=== PATIENT | female | born 2000 | race Caucasian/White ===

== ENCOUNTER 2022-03-31 15:47 | Emergency (ER) | payer OTHER ==
[~2022-03-31] VITALS: Ht 167.6 cm; Wt 97.5 kg
[2022-03-31] MEDS ORDERED: ACETAMINOPHEN ES 500 MG TABLET PO ONE (16:00)
[2022-03-31] MEDS ORDERED: IV NORMAL SALINE 1000 ML BAG IV ONE (16:00)
--- NOTE | 2022-03-31 16:03 | NUR ---
Dr Obregon at the bedside for MSE.
[2022-03-31 16:07] LABS: *BILIRUBIN,URIN NEGATIVE (NEGATIVE); *BLOOD, URINE NEGATIVE (NEGATIVE); *CLARITY,URINE CLEAR (CLEAR); *COLOR,URINE YELLOW (YELLOW); *KETONES,URINE NEGATIVE (NEGATIVE); *URINE HCG, QUAL NEG (NEGATIVE); *UROBILINOGEN,URINE 0.2 E.U./dl (NORMAL); LEUKOCYTE ESTERASE ,URINE NEGATIVE (NEGATIVE); NITRITE, URINE NEGATIVE (NEGATIVE); UGLUCOSE NEGATIVE (NEGATIVE)
[2022-03-31] MEDS ORDERED: LIDOCAINE VISCUS 2% 15 ML UDC MM ONE (16:15)
[2022-03-31] MEDS ORDERED: MAG HYDROX/AL HYDROX/SIMETH 30 ML LIQUID UDC PO ONE (16:15)
[2022-03-31] MEDS ORDERED: FAMOTIDINE. 20 MG/2 ML VIAL IV ONE ×3 (16:15→16:20)
[2022-03-31] MEDS ORDERED: ONDANSETRON 4 MG/2 ML VIAL IV ONE (16:15)
[2022-03-31 16:18] LABS: HEMATOCRIT 39.7 % (31.2-41.9); MEAN CORPUSCULAR HEMOGLOBIN 28.2 uug (24.7-32.8); MEAN CORPUSCULAR VOLUME 84.3 fL (75.5-95.3); PLATELET COUNT (AUTO) 281 K/uL (179-408)
[2022-03-31] MEDS ORDERED: ACETAMINOPHEN ES 500 MG TABLET ONE (16:19)
[2022-03-31] MEDS ORDERED: ONDANSETRON 4 MG/2 ML VIAL ONE (16:19)
[2022-03-31] MEDS ORDERED: MAG HYDROX/AL HYDROX/SIMETH 30 ML LIQUID UDC ONE (16:20)
[2022-03-31] MEDS ORDERED: LIDOCAINE VISCUS 2% 15 ML UDC ONE (16:20)
[2022-03-31 16:32] LABS: CARBON DIOXIDE 27 mmol/L (21-32); CHLORIDE 106 mmol/L (98-107); CREATININE 0.8 mg/dL (0.6-1.3); GLUCOSE 100 mg/dL (74-106); POTASSIUM 4.4 mmol/L (3.5-5.1); UREA NITROGEN, BLOOD 10 mg/dL (7-18)
[2022-03-31 16:38] LABS: ALANINE AMINOTRANSFERASE 24 U/L (14-59); ALKALINE PHOSPHATASE 70 U/L (50-136); ASPARTATE AMINOTRANSFERASE 10 U/L (15-37); BILIRUBIN,TOTAL 0.1 mg/dL (0.2-1.0); LIPASE 100 U/L (73-393); TOTAL PROTEIN, SERUM 7.1 g/dL (6.4-8.2)
[2022-03-31] MEDS ORDERED: ONDA4TAB5 PO (16:41)
[2022-03-31] MEDS ORDERED: FAMO-132 PO (16:41)
[2022-03-31] MEDS ORDERED: DICY10CA13 PO (16:41)
[2022-03-31 16:46] LABS: BILIRUBIN,DIRECT < 0.1 mg/dL (0.0-0.2)
[2022-03-31 18:16] VITALS: BP 125/69
--- NOTE | 2022-03-31 18:16 | NUR ---
Patient discharged to home in stable condition. Written and verbal after care instructions given. Patient verbalizes understanding of instructions. Stressed follow up or return to ER for worsening s/s.
== END 2022-03-31 18:07 | disposition home or self-care (01) ==
LOC: ER 15:47
DX: R10.11 Right upper quadrant pain (principal); R10.13 Epigastric pain; J90 Pleural effusion, not elsewhere classified; K76.0 Fatty (change of) liver, not elsewhere classified; E66.9 Obesity, unspecified; Z68.34 Body mass index [BMI] 34.0-34.9, adult; Z88.0 Allergy status to penicillin; Z91.018 Allergy to other foods; K58.1 Irritable bowel syndrome with constipation
CPT/HCPCS: 99284; 96374; 76705; 96361; 96375; 80076; 80048; 81003; 84703; 83690; 85025; 36415; J3490 ×2; J2405; J7040; A4663; A9150